=== PATIENT | female | born 1975 ===

== ENCOUNTER 2025-03-31 17:31 | Emergency (ER) | payer BC ==
[2025-03-31] MEDS ORDERED: Acetaminophen 500 MG TAB ONE (18:06)
== END 2025-03-31 18:21 | disposition home or self-care (01) ==
LOC: ERS 17:31
DX: S93.421A Sprain of deltoid ligament of right ankle, initial encounter (principal); I10 Essential (primary) hypertension; E03.9 Hypothyroidism, unspecified; E11.9 Type 2 diabetes mellitus without complications; Z79.890 Hormone replacement therapy; Z79.899 Other long term (current) drug therapy; Z79.84 Long term (current) use of oral hypoglycemic drugs; X50.1XXA Overexertion from prolonged static or awkward postures, initial encounter
CPT/HCPCS: 99283